=== PATIENT | male | born 1960 | race African-American/Black ===

== ENCOUNTER → 2017-02-03 | Outpatient (CLI) | payer OTHER ==
[~2017-02-03] MED LIST: ELIQUIS2.5 MG PO; HUMALOG MI100 UNIT/1; HUMALOG100 U/M2; HUMALOG100 U/ML; HYDROCODON-ACE1 EAC7 PO; LANTUS SOLOSTAR3 ML SUBQ; LANTUS100 UNITS/ SUBQ; NEURONTIN100 MG PO; PRINIVIL5 MG PO; RANITIDINE HCL150 M1 PO; SYMBICORT INH; VICODIN PO
--- NOTE | ~2017-02-03 | US85 ---
[facility] A Service of [facility] / [facility] RADIOLOGY TEXT RESULTS PATIENT: RAJAT PAK LOCATION: CNIV : 56 UNIT #: [id number] AGE: [address]: HANNAH MENDOZA PA-C SEX: M ORDER DR: [id number] [facility] [address]. [place], [place] [address] [id number] O MR#: [id number] Acc #: [id number] NAME: RAJAT PAK. : 1960 SEX: M STUDY DATE/TIME: 02/03/2017 14:18 UNIT: CNIV ROOM: STUDY DESCRIPTION: LE Sarath [employer] Stdy Attending Physician: Hannah Mendoza Referring Physician: Hannah Mendoza Ordering Physician: Physician Non-Staff Primary Care Physician: Linda Snow Aprn MEDICAL IMAGING REPORT This report is preliminary unless electronic signature is present EXAM Right lower extremity venous duplex, 02/03/2017 HISTORY Right lower extremity edema and pain for 1 week. Evaluate for deep vein thrombosis. TECHNIQUE Venous ultrasound examination of the right lower extremity was performed using grayscale, spectral Doppler and color flow Doppler imaging. FINDINGS The examination is negative. There is no evidence of right lower extremity deep venous thrombus from the groin to the lower calf. Visualized greater saphenous vein is also patent. IMPRESSION Negative examination. No evidence of right lower extremity deep venous thrombosis. Dictated by... Primitivo Morton M.D. THIS IS AN ELECTRONICALLY VERIFIED REPORT Primitivo Morton M.D. at 02/04/2017 7:29 AM LAURA/gus TD: 02/03/2017 16:25 JOB #: [id number] MEDICAL IMAGING REPORT Page 1 of 1 COPY
== END | disposition home or self-care (01) ==
LOC: CNIV 13:53
DX: M79.89 Other specified soft tissue disorders (principal)
CPT/HCPCS: 93971